=== PATIENT | female | born 1930 | race Caucasian/White ===

== ENCOUNTER → 2017-01-04 15:08 | Outpatient (CLI) | payer MEDICARE, BC ==
[2016-01-05 13:40] VITALS: BMI 29.4
[~2017-01-04 15:08] MED LIST: BETAPACE 80 MG80 MG PO; BISCOLAX10 MG/SUPP RC; CALCIUM CITRATE1 TAB; CEPACOL SORETH1 EACH PO; CHLORASEPTIC S180 ML MM; COLACE100 MG PO; COUMADIN1 MG PO; COUMADIN2.5 MG PO; COUMADIN3 MG PO; COUMADIN5 MG PO; COUMADIN7.5 MG PO; D5 1/2NS 10001000 ML IV; ELIQUIS2.5 MG PO; ELIQUIS5 MG PO; ESTER-C 500 MG1 TAB PO; FLEET MINERAL133 ML RC; HEPARIN IV; HEPARIN SOD5000 U/ML SQ; JANTOVEN2.5 MG PO; KEFLEX250 MG; KEFLEX250 MG PO; LEVAQUIN250 MG PO; LOPRESSOR25 MG PO; MACRODANTIN100 MG PO; MEGACE400 MG/10 PO; MELATONIN 10 M1 EACH PO; MIRALAX17 GM PO; MIRAPEX0.125 MG PO; MIRAPEX0.25 MG PO; MOBIC7.5 MG PO; MYRBETRIQ50 MG PO; NORCO 5/325 TAB1 TA1 PO; ONDANSETRON4 MG/2 M3 IV; ONDANSETRON4 MG/2 M3 PO; PAROXETINE HCL10 MG; PAROXETINE HCL10 MG PO; PAXIL10 MG PO; PHILLIPS COLON HEALT; PROTONIX40 MG PO; ROCEPHIN 1 GM IN1 GM IV; SALINE FLUSH10 ML IJ; SALINE FLUSH10 ML IV; SENOKOT-S TABLE1 TAB PO; TYLENOL 325 MG325 MG PO; TYLENOL650 MG RC; ULTRAM50 MG PO; VITAMIN B-1000 MCG/M IM; VITAMIN B-1000 MCG/M SQ; VITAMIN B-12250 MCG PO; VOLTAREN100 GM TP; XANAX0.25 MG PO; ZOFRAN4 MG PO
== END | disposition home or self-care (01) ==
LOC: D.CT 15:08
DX: G45.9 Transient cerebral ischemic attack, unspecified (principal)

== ENCOUNTER 2017-05-21 19:08 | Emergency (ER) | payer MEDICARE, BC ==
[2016-01-05 13:40] VITALS: BMI 29.4
[2017-05-21 20:25] LABS: BASOPHILS 0.5 % (0-2); EOSINOPHILS 3.1 % (0-7); HEMATOCRIT 44.5 % (36.0-48.0); HEMOGLOBIN 14.5 g/dL (12-16); IMMATURE GRANULOCYTES 0.2 % (0-5); LYMPHOCYTES 37.7 % (15-50); MCH 28.6 pg (26.0-34.0); MCHC 32.6 g/dL (31.0-37.0); MCV 87.8 fL (80.0-100.0); MEAN PLATELET VOLUME 10.2 fL (7.4-10.4); MONOCYTES 11.1 % (2-11); NEUTROPHILS 47.4 % (40-80); PLATELET COUNT 211 10x3/uL (130-400); RBC 5.07 10x6/uL (4.00-5.40); RDW 14.2 % (11.5-14.5); WBC 6.5 10x3/uL (4.8-10.8)
[2017-05-21 20:34] LABS: INR 3.56 (0.85-1.17)
[2017-05-21 20:38] LABS: ALBUMIN 3.4 g/dL (3.4-5.0); ANION GAP 14.2 mmol/L (8-16); BILIRUBIN - TOTAL 0.3 mg/dL (0.2-1.3); CARBON DIOXIDE 25.8 mmol/L (21.0-32.0); CREATININE - SERUM 1.3 mg/dL (0.6-1.3); PROTEIN - SERUM 6.8 g/dL (6.4-8.2)
[2017-05-21 21:21] LABS: APPEARANCE CLEAR (CLEAR); BILIRUBIN NEGATIVE (NEGATIVE); COLOR YELLOW (YELLOW); GLUCOSE NEGATIVE (NEGATIVE); KETONE NEGATIVE (NEGATIVE); LEUKOCYTE ESTERASE 1+ (NEGATIVE); NITRITE NEGATIVE (NEGATIVE); PROTEIN NEGATIVE (NEGATIVE); SPECIFIC GRAVITY 1.025 (1.005-1.020); UROBILINOGEN NORMAL (NORMAL)
[2017-05-21 21:22] LABS: BACTERIA MANY /hpf (NONE SEEN); RED CELLS - URINE 25-50 /hpf (0-5); WHITE CELLS - URINE >50 /hpf (0-5)
== END 2017-05-21 23:33 | disposition home or self-care (01) ==
LOC: D.ER 19:08
PROVIDERS: Emergency Medicine
DX: N39.0 Urinary tract infection, site not specified (principal); E86.0 Dehydration; Z86.73 Personal history of transient ischemic attack (TIA), and cerebral infarction without residual deficits; Z95.0 Presence of cardiac pacemaker

== ENCOUNTER 2017-07-28 11:33 | Emergency (ER) | payer MEDICARE, BC ==
[2016-01-05 13:40] VITALS: BMI 29.4
[2017-07-28 12:22] LABS: APPEARANCE HAZY (CLEAR); BACTERIA MODERATE /hpf (NONE SEEN); BILIRUBIN NEGATIVE (NEGATIVE); COLOR YELLOW (YELLOW); EPITHELIAL CELLS OCC /hpf (0-5); GLUCOSE NEGATIVE (NEGATIVE); KETONE NEGATIVE (NEGATIVE); NITRITE NEGATIVE (NEGATIVE); PROTEIN 2+ mg/dL (NEGATIVE); UROBILINOGEN NORMAL (NORMAL); WHITE CELLS - URINE 0-5 /hpf (0-5)
[2017-07-28 12:25] LABS: BASOPHILS 0.4 % (0-2); EOSINOPHILS 4.2 % (0-7); HEMATOCRIT 42.9 % (36.0-48.0); HEMOGLOBIN 13.8 g/dL (12-16); IMMATURE GRANULOCYTES 0.4 % (0-5); LYMPHOCYTES 29.1 % (15-50); MCH 28.4 pg (26.0-34.0); MCHC 32.2 g/dL (31.0-37.0); MCV 88.3 fL (80.0-100.0); MEAN PLATELET VOLUME 10.3 fL (7.4-10.4); NEUTROPHILS 54.9 % (40-80); PLATELET COUNT 190 10x3/uL (130-400); RBC 4.86 10x6/uL (4.00-5.40); RDW 14.4 % (11.5-14.5); WBC 5.3 10x3/uL (4.8-10.8)
[2017-07-28 12:39] LABS: ALBUMIN 3.4 g/dL (3.4-5.0); ANION GAP 9.3 mmol/L (8-16); BILIRUBIN - TOTAL 0.41 mg/dL (0.2-1.3); CALCIUM 10.8 mg/dL (8.5-10.1); CARBON DIOXIDE 30.6 mmol/L (21.0-32.0); CREATININE - SERUM 1.3 mg/dL (0.6-1.3); POTASSIUM - SERUM 3.9 mmol/L (3.5-5.1); PROTEIN - SERUM 6.9 g/dL (6.4-8.2)
[2017-07-28 14:34] LABS: CREATINE KINASE 51 UL (21-215); PRO BNP 2364 pg/mL (0-450)
[2017-07-28 14:35] LABS: TROPONIN-I < 0.017 ng/mL (0.000-0.060)
== END 2017-07-28 15:15 | disposition home or self-care (01) ==
LOC: D.ER 11:33
PROVIDERS: Emergency Medicine
DX: R30.0 Dysuria (principal); I50.9 Heart failure, unspecified; Z86.73 Personal history of transient ischemic attack (TIA), and cerebral infarction without residual deficits; Z95.0 Presence of cardiac pacemaker

== ENCOUNTER 2018-05-14 22:33 | Inpatient (IN) | payer MEDICARE, BC ==
[~2018-05-14] VITALS: Ht 170.2 cm; Wt 85.3 kg
--- NOTE | ~2018-05-14 | HP ---
PATIENT: GUERLINE CLAY MEDICAL RECORD: [id number] ACCOUNT: [id number] LOCATION:[id number] : 30 ADMISSION DATE: 05/15/18 HISTORY AND PHYSICAL EXAMINATION REASON FOR ADMISSION: Diaphoresis and lightheadedness. HISTORY OF PRESENT ILLNESS: The patient is an 88-year-old female with a remote history of stroke, paroxysmal atrial fibrillation, sick sinus syndrome whose daughter said that she was very weak for the last couple of days. She has been sitting in the chair, mainly transferring with help to the bathroom. She tried to get her up last evening, she became very diaphoretic and lightheaded. She did not faint but was near syncopal. She checked her blood pressure, systolic was 80 and for that reason, she called EMS who brought her into the ER. She was hypotensive on admission. She denied chest pain. Evaluation revealed evidence of recurrent UTI and possible sepsis with hypotension. She was given saline fluid bolus in the ED and admitted for further evaluation. Her daughter is her primary soil conservation technician and she requires full help with ADLs and meals, etc. She is very little ambulatory, mainly transfers from chair to the bathroom. PAST MEDICAL HISTORY: Sick sinus syndrome with pacemaker, paroxysmal atrial fibrillation, pacing approximately 60% of the time. Severe osteoporosis, dementia, remote CVA with partial left hemiparesis, urinary stress incontinence with recurrent UTIs. Last UTI was Klebsiella, treated in the office. History of carotid occlusive disease, remote carpal tunnel syndrome, osteoarthritis, history of gout, pneumonia, and vitamin D deficiency. PAST SURGICAL HISTORY: CHARLES-BSO, left pelvic abscess I&D remotely, varicose vein stripping in both legs, and pacemaker placement. FAMILY HISTORY: One daughter has a history of coagulopathy on chronic anticoagulation for PE. ALLERGIES: SEPTRA, SULFA, PENICILLIN, AND BEXTRA. HOME MEDICATIONS: Lisinopril 10 mg daily, vitamin D 10,000 units p.o. 2 caps p.o. weekly, warfarin 5 mg daily, pramipexole 0.5 mg p.o. at bedtime, Protonix 40 mg p.o. q.a.m., paroxetine 20 mg daily, Macrodantin 50 mg at bedtime, Detrol 1 mg daily, tramadol 50 mg q. 6 hours p.r.n. back pain, sotalol 120 mg p.o. b.i.d., diclofenac topical gel applied to joint t.i.d., clonidine 0.1 p.r.n. systolic over 180, metoprolol tartrate 25 mg p.o. b.i.d. REVIEW OF SYSTEMS: GENERAL: She is chronically fatigued and rarely walks. No recent fever. HEENT: No recent new visual change, sinus congestion. She has trouble hearing. RESPIRATORY: Has mild shortness of breath with minimal exertion. No recent cough. CARDIAC: No recent chest pain or increasing peripheral edema. Recent evaluation by Dr. Glass of her pacemaker showed a 6-year battery life and 60+ % pacing. GASTROINTESTINAL: No nausea, vomiting, change in stools or blood per rectum. GENITOURINARY: Chronic urinary incontinence with malodorous urine. No dysuria. MUSCULOSKELETAL: Chronic thoracic and lumbar back pain and left knee pain. NEUROLOGIC: No history of stroke, which has caused some significant dementia and moderate left-sided weakness. HISTORY AND PHYSICAL [id number] GUERLINE CLAY PHYSICAL EXAMINATION: VITAL SIGNS: Temp is 98.1 Fahrenheit, pulse 71 and regular, respirations are 18, blood pressure was 84/50, sat 96% on room air. GENERAL: The patient is alert but disoriented to place and time, in no acute distress. HEENT: Eyes are clear. Palpebral conjunctivae are pale. Oropharynx: Mucosa is dry. NECK: Fair range of motion with increased dorsal kyphosis of the cervical or thoracic spine. HEART: Regular rate without gallop. LUNGS: Distant breath sounds without wheeze. ABDOMEN: Soft, nontender, mildly obese. PELVIC: Deferred. Catheter is in place. EXTREMITIES: She has crepitance in both knees with pain with flexion and extension. She has 2+ mild pedal edema. NEUROLOGICAL: Oriented to person but not to place and time. She has marked muscle weakness in her lower extremities and was unable to really bear weight more than 1-2 steps without assistance. LABORATORY DATA: White count 11,200, with normal diff, H&H is 14.8 and 44.9. Chemistry reveals BUN and creatinine elevated at 26 and 1.5, GFR is low at 35 mL per minute. Lactic acid is 1.8. LFTs normal. Troponin normal. ProBNP is 1117. UA is concentrated and cloudy with trace blood, 5-10 white and red cells, 1+ leukocyte esterase and many bacteria. Imaging was not obtained. EKG shows paced rhythm. ASSESSMENT: 1. Symptomatic hypotension, possibly from urosepsis. 2. Urinary tract infection. 3. Sick sinus syndrome with pacemaker. 4. Paroxysmal atrial fibrillation. 5. Osteoarthritis, osteoporosis, remote cerebrovascular accident with dementia and gait disturbance. PLAN: The patient will be admitted and given IV fluids to improve her blood pressure. We will discontinue lisinopril at this point, culture blood and urine, empiric antibiotics based on her previous Klebsiella culture and sensitivity to Rocephin and Levaquin. Further workup pending clinical course, which was discussed with the daughter in the room. TRANSINT:[id number] Voice Confirmation ID: [id number] DOCUMENT ID: [id number] HISTORY AND PHYSICAL [id number] GUERLINE CLAY TIMOTHY MD at [id number] CC: [id number] DICTATION DATE: 05/15/18 075 EVENT SALES MANAGER: 05/15/18 1046 DIS IN 05/19/18 [facility] [address] [place] [address]
[2018-05-14] MEDS ORDERED: LISINOPRIL10 MG PO (22:40)
[2018-05-14] MEDS ORDERED: DETROL1 MG PO (22:41)
[2018-05-14 23:04] LABS: BASOPHILS 0.2 % (0-2); EOSINOPHILS 1.8 % (0-7); HEMATOCRIT 44.9 % (36.0-48.0); HEMOGLOBIN 14.8 g/dL (12-16); IMMATURE GRANULOCYTES 0.4 % (0-5); LYMPHOCYTES 23.2 % (15-50); MCH 29.2 pg (26.0-34.0); MCV 88.6 fL (80.0-100.0); MEAN PLATELET VOLUME 10.7 fL (7.4-10.4); MONOCYTES 9.1 % (2-11); NEUTROPHILS 65.3 % (40-80); PLATELET COUNT 206 10x3/uL (130-400); RBC 5.07 10x6/uL (4.00-5.40); RDW 14.4 % (11.5-14.5); WBC 11.2 10x3/uL (4.8-10.8)
[2018-05-14 23:21] LABS: ALBUMIN 3.3 g/dL (3.4-5.0); ALKALINE PHOSPHATASE 79 U/L (46-116); ALT (SGPT) 20 U/L (10-68); BILIRUBIN - TOTAL 0.52 mg/dL (0.2-1.3); CALC OSMOLALITY 283 mosm/kg (275-300); CALCIUM 10.2 mg/dL (8.5-10.1); CHLORIDE - SERUM 105 mmol/L (98-107); CREATININE - SERUM 1.5 mg/dL (0.6-1.3); GLUCOSE 121 mg/dL (74-106); POTASSIUM - SERUM 4.7 mmol/L (3.5-5.1); PROTEIN - SERUM 7.1 g/dL (6.4-8.2); SODIUM 139 mmol/L (136-145); UREA NITROGEN 26 mg/dL (7-18); eGFR NON AFRICAN AMERICAN 35 mL/min (90-120)
[2018-05-14 23:36] LABS: CKMB 0.2 U/L (0.0-3.6); CREATINE KINASE 62 UL (21-215); PRO BNP 1117 pg/mL (0-450)
[2018-05-14 23:38] LABS: TROPONIN-I < 0.017 ng/mL (0.000-0.060)
[2018-05-14 23:43] LABS: APPEARANCE CLOUDY (CLEAR); BILIRUBIN NEGATIVE (NEGATIVE); COLOR YELLOW (YELLOW); GLUCOSE NEGATIVE (NEGATIVE); KETONE NEGATIVE (NEGATIVE); NITRITE NEGATIVE (NEGATIVE); PROTEIN NEGATIVE (NEGATIVE); UROBILINOGEN NORMAL (NORMAL)
[2018-05-14 23:44] LABS: BACTERIA MANY /hpf (NONE SEEN); EPITHELIAL CELLS 0-5 /hpf (0-5)
[2018-05-14 23:45] LABS: CALCIUM OXALATE CRYSTALS 0-5 /hpf (NONE SEEN); HYALINE CAST 0-5 /lpf (NONE SEEN); MUCUS <1+ /lpf (NONE SEEN)
[2018-05-15] VITALS (7 sets, daily range): BP systolic 87–121; BP diastolic 53–77; Ht 170.2 cm; Wt 85.3 kg
[2018-05-15] MEDS ORDERED: COUMADIN2.5 MG PO (02:10)
[2018-05-15] MEDS ORDERED: MACRODANTIN50 MG PO (02:12)
[2018-05-16] VITALS: BP 110/68
[2018-05-16 04:00] VITALS: BP 146/83
[2018-05-16 05:08] LABS: BASOPHILS 0.2 % (0-2); EOSINOPHILS 2.9 % (0-7); HEMATOCRIT 39.6 % (36.0-48.0); HEMOGLOBIN 12.8 g/dL (12-16); IMMATURE GRANULOCYTES 0.2 % (0-5); LYMPHOCYTES 25.3 % (15-50); MCH 28.6 pg (26.0-34.0); MCHC 32.3 g/dL (31.0-37.0); MCV 88.4 fL (80.0-100.0); MEAN PLATELET VOLUME 10.4 fL (7.4-10.4); MONOCYTES 10.5 % (2-11); NEUTROPHILS 60.9 % (40-80); RBC 4.48 10x6/uL (4.00-5.40); RDW 14.5 % (11.5-14.5)
[2018-05-16 05:19] LABS: INR 3.29 (0.85-1.17); PROTIME 32.7 SECONDS (11.6-15.0)
[2018-05-16 05:21] LABS: PLATELET COUNT 158 10x3/uL (130-400); WBC 6.6 10x3/uL (4.8-10.8)
[2018-05-16 05:28] LABS: ANION GAP 10.2 mmol/L (8-16); CARBON DIOXIDE 27.4 mmol/L (21.0-32.0); CREATININE - SERUM 1.3 mg/dL (0.6-1.3); POTASSIUM - SERUM 4.6 mmol/L (3.5-5.1)
[2018-05-16 09:35] VITALS: BP 134/93
[2018-05-16 16:07] VITALS: BP 124/76
[2018-05-16 19:40] VITALS: BP 101/74
[2018-05-16 23:21] VITALS: BP 125/80
[2018-05-17 03:57] VITALS: BP 136/72
[2018-05-17 06:18] LABS: BASOPHILS 0.2 % (0-2); EOSINOPHILS 3.6 % (0-7); HEMATOCRIT 36.8 % (36.0-48.0); IMMATURE GRANULOCYTES 0.2 % (0-5); LYMPHOCYTES 25.4 % (15-50); MCH 28.6 pg (26.0-34.0); MCHC 32.6 g/dL (31.0-37.0); MCV 87.6 fL (80.0-100.0); MEAN PLATELET VOLUME 10.2 fL (7.4-10.4); MONOCYTES 10.9 % (2-11); NEUTROPHILS 59.7 % (40-80); PLATELET COUNT 152 10x3/uL (130-400); RDW 14.5 % (11.5-14.5); WBC 5.5 10x3/uL (4.8-10.8)
[2018-05-17 06:25] LABS: INR 2.81 (0.85-1.17); PROTIME 28.9 SECONDS (11.6-15.0)
[2018-05-17 06:31] LABS: ANION GAP 9.8 mmol/L (8-16); CALCIUM 9.1 mg/dL (8.5-10.1); CARBON DIOXIDE 26.1 mmol/L (21.0-32.0); CREATININE - SERUM 1.2 mg/dL (0.6-1.3)
[2018-05-17 06:33] LABS: POTASSIUM - SERUM 3.9 mmol/L (3.5-5.1)
[2018-05-17 08:28] VITALS: BP 133/84
[2018-05-17 12:36] VITALS: BP 142/60
[2018-05-17 13:10] VITALS: BP 119/59
[2018-05-17 16:00] VITALS: BP 108/64
[2018-05-17 22:37] VITALS: BP 114/67
[2018-05-18 04:06] VITALS: BP 120/55
[2018-05-18 08:23] VITALS: BP 134/82
[2018-05-18 12:33] VITALS: BP 114/71
[2018-05-18 16:05] VITALS: BP 110/66
[2018-05-18 16:53] LABS: INR 1.91 (0.85-1.17); PROTIME 21.3 SECONDS (11.6-15.0)
[2018-05-18 22:41] VITALS: BP 101/64
[2018-05-19 03:58] VITALS: BP 120/78
[2018-05-19 08:48] VITALS: BP 147/84
[2018-05-19 13:01] LABS: APPEARANCE CLOUDY (CLEAR); BILIRUBIN NEGATIVE (NEGATIVE); COLOR DK YELLOW (YELLOW); GLUCOSE NEGATIVE (NEGATIVE); KETONE NEGATIVE (NEGATIVE); NITRITE NEGATIVE (NEGATIVE); PROTEIN 1+ mg/dL (NEGATIVE); SPECIFIC GRAVITY 1.025 (1.005-1.020); UROBILINOGEN NORMAL (NORMAL)
[2018-05-19 13:02] LABS: BACTERIA MODERATE /hpf (NONE SEEN); EPITHELIAL CELLS 0-5 /hpf (0-5); MUCUS <1+ /lpf (NONE SEEN); RED CELLS - URINE >50 /hpf (0-5); WHITE CELLS - URINE 0-5 /hpf (0-5)
[2018-05-19 13:28] VITALS: BP 118/65
[2018-05-19 16:51] VITALS: BP 113/81
[2018-05-19] MEDS ORDERED: LISINOPRIL2.5 MG PO (16:51)
[2018-05-19] MEDS ORDERED: COUMADIN5 MG PO (16:51)
[2018-05-19] MEDS ORDERED: MACRODANTIN50 MG PO (17:25)
== END 2018-05-19 19:43 | DRG 690 ==
LOC: D.ER 22:33 → D.EDHOLD 05-15 01:01 → D.MS 05-15 01:01
PROVIDERS: Family Medicine
DX: N39.0 Urinary tract infection, site not specified (principal); I95.9 Hypotension, unspecified; Z95.0 Presence of cardiac pacemaker; I48.0 Paroxysmal atrial fibrillation; M19.90 Unspecified osteoarthritis, unspecified site; M81.0 Age-related osteoporosis without current pathological fracture; I69.398 Other sequelae of cerebral infarction; F03.90 Unspecified dementia, unspecified severity, without behavioral disturbance, psychotic disturbance, mood disturbance, and anxiety; R26.9 Unspecified abnormalities of gait and mobility; E86.0 Dehydration; N39.3 Stress incontinence (female) (male)

== ENCOUNTER 2018-07-09 10:20 | Emergency (ER) | payer MEDICARE, BC ==
[~2018-07-09] VITALS: Ht 170.2 cm; Wt 72.7 kg
[~2018-07-09 10:20] MED LIST changes: +DETROL1 MG PO; +LISINOPRIL10 MG PO; +LISINOPRIL2.5 MG PO; +MACRODANTIN50 MG PO
[2018-07-09 10:22] VITALS: Ht 170.2 cm; Wt 72.7 kg
[2018-07-09 10:45] LABS: BASOPHILS 0.2 % (0-2); EOSINOPHILS 1.7 % (0-7); HEMATOCRIT 38.3 % (36.0-48.0); HEMOGLOBIN 12.5 g/dL (12-16); IMMATURE GRANULOCYTES 0.5 % (0-5); LYMPHOCYTES 15.8 % (15-50); MCH 27.7 pg (26.0-34.0); MCHC 32.6 g/dL (31.0-37.0); MCV 84.9 fL (80.0-100.0); MEAN PLATELET VOLUME 9.7 fL (7.4-10.4); MONOCYTES 11.8 % (2-11); PLATELET COUNT 296 10x3/uL (130-400); RBC 4.51 10x6/uL (4.00-5.40); RDW 14.3 % (11.5-14.5)
[2018-07-09 11:05] LABS: ALBUMIN 2.4 g/dL (3.4-5.0); ALKALINE PHOSPHATASE 86 U/L (46-116); ALT (SGPT) 14 U/L (10-68); BILIRUBIN - TOTAL 0.47 mg/dL (0.2-1.3); CALC OSMOLALITY 275 mosm/kg (275-300); CALCIUM 10.1 mg/dL (8.5-10.1); CARBON DIOXIDE 25.7 mmol/L (21.0-32.0); CHLORIDE - SERUM 101 mmol/L (98-107); CREATININE - SERUM 1.2 mg/dL (0.6-1.3); GLUCOSE 111 mg/dL (74-106); POTASSIUM - SERUM 4.4 mmol/L (3.5-5.1); PROTEIN - SERUM 7.2 g/dL (6.4-8.2); SODIUM 136 mmol/L (136-145); UREA NITROGEN 22 mg/dL (7-18); eGFR NON AFRICAN AMERICAN 45 mL/min (90-120)
[2018-07-09 11:17] LABS: CKMB 0.2 U/L (0.0-3.6); CREATINE KINASE 13 UL (21-215); PRO BNP 1513 pg/mL (0-450)
[2018-07-09 11:19] LABS: TROPONIN-I < 0.017 ng/mL (0.000-0.060)
[2018-07-09 19:54] LABS: APPEARANCE TURBID (CLEAR); BILIRUBIN NEGATIVE (NEGATIVE); COLOR YELLOW (YELLOW); GLUCOSE NEGATIVE (NEGATIVE); KETONE NEGATIVE (NEGATIVE); NITRITE POSITIVE (NEGATIVE); PROTEIN 2+ mg/dL (NEGATIVE); UROBILINOGEN NORMAL (NORMAL)
[2018-07-09 19:55] LABS: WHITE CELLS - URINE >50 /hpf (0-5)
[2018-07-10 00:03] VITALS: BP 107/70
== END 2018-07-10 00:04 | disposition home or self-care (01) ==
LOC: D.ER 10:20
PROVIDERS: Family Medicine
DX: I48.2 Chronic atrial fibrillation (principal); Z95.0 Presence of cardiac pacemaker; I69.354 Hemiplegia and hemiparesis following cerebral infarction affecting left non-dominant side; R25.3 Fasciculation; Z79.01 Long term (current) use of anticoagulants